=== PATIENT | male | born 1950 | race Two or more races ===

== ENCOUNTER 2022-08-04 20:32 | Emergency (ER) | payer SELFPAY ==
[2022-08-04] MEDS ORDERED: LORazepam 2 MG/ML SDV ONE (22:14)
[2022-08-04] MEDS ORDERED: Sodium Chloride 0.9% 1,000 ML ONE (22:14)
[2022-08-04] MEDS ORDERED: Thiamine 200 MG/2 ML MDV ONE (22:14)
[2022-08-04] MEDS ORDERED: LORazepam 2 MG/ML SDV IVPUSH ONE (23:14)
[2022-08-04] MEDS ORDERED: Thiamine 200 MG/2 ML MDV IVPUSH ONE (23:14)
[2022-08-04] MEDS ORDERED: Sodium Chloride 0.9% 1,000 ML IV SCH (23:15)
[2022-08-04 23:34] LABS: ESTIMATED GFR 72 mL/min (>60)
== END 2022-08-05 06:17 | disposition home or self-care (01) ==
LOC: JD.ED 20:32
DX: F10.129 Alcohol abuse with intoxication, unspecified (principal); I10 Essential (primary) hypertension; E11.9 Type 2 diabetes mellitus without complications; Y90.0 Blood alcohol level of less than 20 mg/100 ml
CPT/HCPCS: 36415; 70450; 71045; 72125; 80053; 80306; 80307; 81001; 82550; 82553; 84484; 85025; 85610; 85730; 93005; 96361; 96374; 96375; 99285; J2060; J3411; J7030